=== PATIENT | female | born 2000 | race Two or more races ===

== ENCOUNTER 2025-01-10 10:20 | Outpatient (AMB) | payer MEDICAID, SELFPAY ==
[2025-01-10 10:36] VITALS: BP 115/75; PULSE 74; RESP 17; TEMP 36.9; O2SAT 99; BMI 34.0
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
== END 2025-01-10 11:33 | disposition home or self-care (01) ==
PROVIDERS: PCP Advanced Practice Midwife; Referring Provider Advanced Practice Midwife; Supervising Provider Advanced Practice Midwife; Visit Provider Advanced Practice Midwife
DX: Z34.82 Encounter for supervision of other normal pregnancy, second trimester (principal); Z3A.18 18 weeks gestation of pregnancy; Z87.59 Personal history of other complications of pregnancy, childbirth and the puerperium
CPT/HCPCS: 99214; G0463

== ENCOUNTER 2025-05-03 09:25 | Outpatient (AMB) | payer MEDICAID, SELFPAY ==
[2025-05-03 09:39] VITALS: BP 111/71; PULSE 77; RESP 14; TEMP 36.6; O2SAT 98; BMI 35.9
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
== END 2025-05-03 10:09 | disposition home or self-care (01) ==
LOC: HODSOBC 09:25
PROVIDERS: PCP Advanced Practice Midwife; Referring Provider Advanced Practice Midwife; Supervising Provider Advanced Practice Midwife; Visit Provider Advanced Practice Midwife
DX: O09.93 Supervision of high risk pregnancy, unspecified, third trimester (principal); Z3A.34 34 weeks gestation of pregnancy
CPT/HCPCS: 99214; G0463

== ENCOUNTER 2025-05-17 14:31 | Outpatient (AMB) | payer MEDICAID, SELFPAY ==
[2025-05-17 14:41] VITALS: BP 112/70; PULSE 99; RESP 18; TEMP 36.8; O2SAT 97; BMI 36.1
--- NOTE | 2025-05-17 14:41 | OBCLNT_ITS ---
Vital Signs 05/17/25 14:41 Height 1.65 m Height Method Stated Weight 98.543 kg Weight Measurement Method Standing Scale BMI 36.1 BP 112/70 Blood Pressure Source Automatic Cuff Blood Pressure Location Right Upper Arm Position Sitting Respiration 18 Pulse 99 Pulse Source Monitor Temp 98.3 F Temp Source Temporal Artery Scan Pulse Oximetry (%) 97 Oxygen Delivery Method Room Air Allergies/Home Meds Allergies & Medications Allergies No Known Allergies Allergy (Verified 05/17/25 14:42) Medication Reconciliation aspirin 81 mg tablet,delayed release (Adult Aspirin Regimen) 81 mg PO QDAY #60 tabs 01/10/25 [Rx Confirmed 05/17/25] vits no.126-ferrous fum 28 mg iron-folic acid 800 mcg tablet (Classic ) tab PO 01/10/25 [History Confirmed 05/17/25] Immunizations Immunizations Flu Vaccine in the Last 12 Months: No Flu Vaccine Exclusion Criteria: No Exclusion Criteria Care OB Visit Log OB Flowsheet Initial Weight: Not Recorded Date -?-?-?-?-?-?-?-?-?-?-?-?- EGA Weight BP Alb Glu CTX Pres Fundal ht FHR Mov Dilation Station Effacement Hx Notes Visit Note 01/10/25 -?-?-?-?-?-?-?-?-?-?-?-?- 18w 1d 92.703 kg 115/75 absent unknown 18 156 active This is a 24-year-old 2 para 1 for OBI. Patient first went to [facility] for verification. She is taking prenatals. Patient has sure dates. Last period September 05, 2024 and this will give due date June 13, 2025. History of gestational hypertension her first . She has no complications with the . The baby weighed 6 pounds. Denies bleeding or leaking at this time and no cramps. AFP, NIPT, OB pa [place] today. Schedule anatomy scan with [facility]. Discussed diets and exercise. SAB precautions. And start low-dose baby aspirin 1 daily. Return in 4 weeks OB check 05/03/25 -?-?-?-?-?-?-?-?-?-?-?-?- 34w 2d 97.976 kg 111/71 absent cephalic 34 156 active No OB complaints. Reports movement. Denies leaking, bleeding, contractions GBS next visit. We ordered third trimester labs and A1c today. Discussed kick count and labor precautions 05/17/25 -?-?-?-?-?-?-?-?-?-?-?-?- 36w 2d 98.543 kg 112/70 absent cephalic 36 156 active Reports good movement. Denies leaking, bleeding, contractions GBS today. Discussed labor precautions. Kick count twice a day. Comfort measures for OP position and how to turn her baby and return in a week OB check MYRA Calculator Estimated Delivery Date Method Current WG Current Estimate 06/12/25 LMP (Certain) 36w 2d Other Estimates 06/12/25 Ultrasound #1 36w 2d 06/12/25 Manual 36w 2d final myra: 05/23 08/16 Notes Visit Date: 05/17/25 Last Updated by: Alisa Cline CNM 3rd tri lab wnl Visit Date: 05/03/25 Last Updated by: Alisa Cline CNM O+,abs-,rpr;;nr, rub imm, hbsag-, hiv-,hc-, GC/CT-, NIPT and carrier screen- Visit Date: 01/10/25 Last Updated by: Alisa Cline CNM 24 yo LMP 09/05/24, EDC 06/13/25 Office Procedures OBC Clinic LOC & Office Proc's Nursing/Assessment Patient Status: Established Patient OB Clinic Nursing Assessment: Medication Reconciliation, Update PMH in EMR and Vital Signs OB Clinic Coordination of Care: Complex Care and Chronic Disease 1-5, Education Complex Pt/Fam, Consent,records obtained, informed consent, Lab and Imaging orders, Results/Orders obtained and Staff clarify orders Special Needs: Heart tones Miscellaneous Interventions: Culture Specimen Collection Established Patient Charge Established Patient Point Assignment: 155 Established Patient Point Charge: EP Level 4 (120-155) Assessment & Plan Diagnosis / Problem List (1) Encounter for supervision of high risk in third trimester, antepartum: Status: Acute Plan GBS today. Discussed labor precautions. Kick count twice a day. Continue prenatals. Comfort measures for OP position return in a week OB check Additional Plan Follow Up: 1 Week (obc)
== END 2025-05-17 15:05 | disposition home or self-care (01) ==
LOC: HODSOBC 14:31
PROVIDERS: Supervising Provider Advanced Practice Midwife; Visit Provider Advanced Practice Midwife
DX: O09.93 Supervision of high risk pregnancy, unspecified, third trimester (principal); Z3A.36 36 weeks gestation of pregnancy; Z36.85 Encounter for antenatal screening for Streptococcus B
CPT/HCPCS: 99214; G0463

== ENCOUNTER 2025-06-02 11:55 | Inpatient (IN) | payer MEDICAID, SELFPAY ==
[2025-06-02] VITALS (104 sets, daily range): BP systolic 115–186; BP diastolic 64–108; PULSE 80–120; RESP 18–99; TEMP 36.6–36.8; O2SAT 84–100; BMI 36.6
[2025-06-02 12:52] LABS: ROM Kit Exp Date# 04/11/28; ROM Kit Lot # 58106258; ROM Swab Mixed By: SAUCT; Rupture of Fetal Membranes Negative (Negative); Swb Mxed in Solvent 1 min? Yes
--- NOTE | 2025-06-02 13:21 | XR_ITS ---
Examination: Complete OB ultrasound greater than 14 weeks Date and time of exam: 06/02/2025 at 2:42 p.m. CLINICAL HISTORY: Patient is complaining of contractions, vaginal spotting and fluid leaking which began today Findings: Viable intrauterine single fetus with single amniotic sac The fetus is in cephalic presentation. heart rate is normal at 143 bpm.. There is a three-vessel cervical cord, placenta is located at the fundus and is grade 3. heart 4 chamber is identified, as is the bladder and kidneys and stomach and spine the cervical length could not be obtained, this area was obscured the a very low position the head Visualization of both right and left ovaries was not able to be obtained, due to overlying bowel gas Composite estimated gestational age based on BPD, head circumference, abdominal circumference, femur length is 37 weeks 5 days. Estimated weight is 3304 gm. Estimated date of delivery is June 18, 2025 Survey of intracranial anatomy, spinal anatomy, abdominal anatomy, four-chamber heart performed with no abnormalities identified. Impression: 1. Normal-appearing single intrauterine fetus in cephalic presentation, current gestational age 37 weeks 5 days 2. The placenta is grade 3 and is located at the fundus of the. Uterus 3. No abnormalities are identified on today's study 4 the head circumference/abdominal circumference ratio, and the femur length/BPD the are both within normal limit
[2025-06-02 15:41] LABS: ROM Kit Exp Date# 04/11/28; ROM Kit Lot # 58106258; ROM Swab Mixed By: SANCF1; Rupture of Fetal Membranes Negative (Negative); Swb Mxed in Solvent 1 min? Yes
[2025-06-02] MEDS: RINGERS LACTATED 1000 ML 1,000 ML 100 ML IV ×2 (17:25→20:12)
[2025-06-02] MEDS: Ampicillin Inj 2,000 MG in SODIUM CHLORIDE 0.9% (POP) 100 ML 200 MG IV (17:25)
[2025-06-02 17:43] LABS: Basophils # (Auto) 0.0 Thou/mm3 (0.0-0.2); Basophils % (Auto) 0 % (0-2.5); Eosinophils # (Auto) 0.0 Thou/mm3 (0.0-0.5); Eosinophils % (Auto) 0 % (0-10); Hematocrit 37.2 % (36.0-46.0); Hemoglobin 12.8 g/dL (12.0-16.0); Immature Granulocytes Auto 0.06 Thou/mm3 (0.00-0.00); Lymphocytes # (Auto) 1.2 Thou/mm3 (1.0-4.8); Lymphocytes % (Auto) 15 % (10-50); Mean Corpuscular HGB Conc 34.4 g/dl (31.0-37.0); Mean Corpuscular Hemoglobin 33.3 pg (25.0-35.0); Mean Corpuscular Volume 97 fL (80-100); Monocytes # (Auto) 1.0 Thou/mm3 (0.0-0.8); Monocytes % (Auto) 12 % (0-12); Neutrophils # (Auto) 6.0 Thou/mm3 (1.8-7.7); Neutrophils % (Auto) 72 % (37-80); Nucleated Red Blood Cell # 0.00 Thou/mm3 (0.00-0.00); Nucleated Red Blood Cell % 0 /100 WBC (0); Platelet Count 190 Thou/mm3 (140-440); RDW Standard Deviation 42.2 fL (36.4-46.3); Red Blood Count 3.84 Miln/mm3 (4.00-5.20); White Blood Count 8.3 Thou/mm3 (3.6-11.0)
[2025-06-02 18:34] LABS: Syphilis Nonreactive (Nonreactive)
[2025-06-02 19:31] LABS: Basophils # (Auto) 0.0 Thou/mm3 (0.0-0.2); Basophils % (Auto) 0 % (0-2.5); Eosinophils # (Auto) 0.0 Thou/mm3 (0.0-0.5); Eosinophils % (Auto) 0 % (0-10); Hematocrit 37.2 % (36.0-46.0); Hemoglobin 12.6 g/dL (12.0-16.0); Immature Granulocytes Auto 0.08 Thou/mm3 (0.00-0.00); Lymphocytes # (Auto) 1.6 Thou/mm3 (1.0-4.8); Lymphocytes % (Auto) 16 % (10-50); Mean Corpuscular HGB Conc 33.9 g/dl (31.0-37.0); Mean Corpuscular Hemoglobin 32.9 pg (25.0-35.0); Mean Corpuscular Volume 97 fL (80-100); Monocytes # (Auto) 1.2 Thou/mm3 (0.0-0.8); Monocytes % (Auto) 12 % (0-12); Neutrophils # (Auto) 7.0 Thou/mm3 (1.8-7.7); Neutrophils % (Auto) 71 % (37-80); Nucleated Red Blood Cell # 0.00 Thou/mm3 (0.00-0.00); Nucleated Red Blood Cell % 0 /100 WBC (0); Platelet Count 178 Thou/mm3 (140-440); RDW Standard Deviation 42.2 fL (36.4-46.3); Red Blood Count 3.83 Miln/mm3 (4.00-5.20); White Blood Count 9.9 Thou/mm3 (3.6-11.0)
[2025-06-02 19:55] LABS: Fibrinogen 553 mg/dL (175-375); INR 1.0 (0.9-1.3); Partial Thromboplastin Time 25.6 Seconds (22.0-36.0); Prothrombin Time 10.5 Seconds (9.0-12.2)
[2025-06-02 19:57] LABS: Alanine Aminotransferase 110 U/L (10-49); Albumin, Serum 4.3 gm/dL (3.5-5.0); Albumin/Globulin Ratio 1.2 (1.2-2.2); Alkaline Phosphatase 763 U/L (46-116); Anion Gap 12 (7-16); Aspartate Amino Transferase 72 U/L (0-34); BUN/Creatinine Ratio 9 Ratio (12-20); Bilirubin,Total 1.9 mg/dL (0.3-1.2); Blood Urea Nitrogen 6 mg/dL (9-23); Calcium 9.9 mg/dL (8.3-10.6); Calcium (Corrected) 9.9 mg/dL (8.5-10.1); Carbon Dioxide 20.8 mMol/L (20.0-31.0); Chloride 103 mMol/L (98-107); Creatinine (Component) 0.7 mg/dL (0.6-1.3); Estimated Creatinine Clearance 147.5 mL/min (>60); Globulin 3.5 gm/dL (2.3-3.5); Glucose 66 mg/dL (74-106); LDH (Lactate Dehydrogenase) 374 U/L (120-246); Osmolality,Calculated 267 (275-295); Potassium 4.3 mMol/L (3.4-5.1); Sodium 136 mMol/L (136-145); Total Protein 7.8 gm/dL (5.7-8.2); Uric Acid 5.6 mg/dL (3.1-7.8); eGFR > 60 See Note
[2025-06-02] MEDS: Ampicillin Inj 1,000 MG in SODIUM CHLORIDE 0.9% (Popper) 50 ML 50 MG IV (21:23)
[2025-06-02 21:25] LABS: Collection Type, Urine Clean Catch
[2025-06-02 21:29] LABS: Bilirubin,Urine Negative (Negative); Blood,Urine Negative (Negative); Clarity,Urine Clear (Clear/Hazy); Color,Urine Yellow (Lt Yel-Yel); Glucose, Urine Negative (Negative); Ketones,Urine 3+ (Negative); Leukocyte Esterase,Urine Negative (Negative); Nitrite,Urine Negative (Negative); PH,Urine 6.5 (5.0-7.0); Protein,Urine Trace (Neg - Trace); RBC,Urine 6 /hpf (0-3); Specific Gravity,Urine 1.020 (1.001-1.035); Squamous Epithelial Cell,Urine < 1 /hpf (0-5); Urobilinogen,Urine 2.0 mg/dL (0.0-1.0); WBC,Urine < 1 /hpf (0-5)
[2025-06-02] MEDS: OXYTOCIN in NS 30 units 30 UNIT/500 ML BAG IV (21:45)
[2025-06-02 21:50] LABS: Creatinine,Random Urine 76 mg/dL (30-125); Protein Total, Random Urine 34 mg/dL (1-14)
[2025-06-03] VITALS (49 sets, daily range): BP systolic 105–159; BP diastolic 60–94; PULSE 65–181; RESP 14–16; TEMP 36.7–37; O2SAT 91–100
[2025-06-03] MEDS: RINGERS LACTATED 1000 ML 1,000 ML 100 ML IV (00:36)
[2025-06-03] MEDS: Ampicillin Inj 1,000 MG in SODIUM CHLORIDE 0.9% (Popper) 50 ML 50 MG IV (01:21)
[2025-06-03] MEDS: OXYTOCIN in NS 20 units 20 UNIT/1,000 ML BAG 125 UNIT IV (02:06)
[2025-06-03] MEDS: TRANEXAMIC ACID 1,000 MG IVPB 1,000 MG/100 ML BAG 200 MG IV (02:10)
[2025-06-03] MEDS: OXYTOCIN INJ 10 UNIT/ML VIAL IM (02:12)
--- NOTE | 2025-06-03 02:46 | PD.LDHP ---
Documentation for date of: 06/03/25 OB Labor/Induct. HPI History of Present Illness Chief complaint: labor : 2 Para: 1 Term pregnancies: 1 pregnancies: 0 Living children: 1 History of Abortions: Spontaneous and Elective: 0 History of Vaginal deliveries: 1 History of sections: No History of : No Date of last menstrual period: 09/05/24 MYRA: 06/01/25 Gestational Age (weeks): 38 Gestational Age (days): 5 Gestational age based on last menstrual period: 38 Indication for induction: maternal discomfort History of present illness: 24-year-old 2 para 1 admit to labor and delivery with complaints of contractions since 1600. Patient thought she had rupture membranes but AmniSure was negative x 2. But then patient had made cervical change so she was. On the complete OB BENSON was 5. Last period September 05, 2024. Estimated due date June 18, 2025. Patient was 18 weeks first visit at OB clinic. Patient is O+, antibody screen negative, RPR nonreactive, rubella immune, hepatitis B negative, hep C negative, HIV negative, GC and Chlamydia were negative. Normal 1 hours. Her NIPT and carrier screen were negative and GBS positive patient denies social habits. Denies surgery. Denies chronic illness. Patient reports movement. History of PIH with first . Patient was taking low-dose baby aspirin. History of Present Dating criteria: LMP confirmed by 2nd trimester US Adequate Care: Yes Ultrasounds: normal mid trimester US Obstetrical complications: none Medical complications: none Labs Labs: Positive: Rubella Titre and Group Beta Strep, Negative: RPR, Hepatitis B, HIV, Chlamydia and Gonorrhea and Unknown: Herpes Type 1, Herpes Type 2 and Covid-19 Review of Systems Review of Systems Systems Reviewed: All systems reviewed, normal except as documented Past Medical History Surgical History SURGICAL: Negative Section Meds Home Medications and Allergies Home Medications ?Medication ?Instructions ?Recorded ?Confirmed ?Type vits no.126-ferrous fum tab PO 01/10/25 05/17/25 History 28 mg iron-folic acid 800 mcg tablet (Classic ) Allergies Allergy/AdvReac Type Severity Reaction Status Date / Time No Known Allergies Allergy Verified 06/02/25 18:57 OB Exam Physical Exam Vital signs: Temp Pulse Resp BP Pulse Ox 97.8 F 92 18 115/84 91 L 06/02/25 23:30 06/03/25 02:33 06/02/25 23:30 06/03/25 02:33 06/03/25 02:12 Narrative: Alert and oriented. Normal heart rate and rhythm. Lungs are clear no wheezes. Gravid abdomen. Gynecoid pelvis. Estimated weight 7 pounds. Vaginal exam on admission was 80%, 3, -2 mid position. BESNON 5cm. vtx, FHR category 1. Several blood pressures in mid range. PIH labs were done. CR ratio was less than 2. ALT and AST were high. Detailed Labor and Delivery Exam Dilation (cm): 3 Effacement (%): 80 Cervix position: mid station: -2 Consistency: soft Presentation: Vertex Baseline heart rate: 145 monitor accelerations: 15x15 monitor decelerations: None joint terminal attack controller variability: Moderate (11-25) Contraction frequency (min): 5-7 Contraction duration (sec): 40 Tachysystole: No Contraction intensity: Mild OB Results Labs 06/02/25 19:06 06/02/25 19:06 Labs: Short CBC 06/02/25 06/02/25 Range/Units 17:20 19:06 WBC 8.3 9.9 (3.6-11.0) Thou/mm3 Hgb 12.8 12.6 (12.0-16.0) g/dL Hct 37.2 37.2 (36.0-46.0) % Plt Count 190 178 (140-440) Thou/mm3 BMP 06/02/25 19:06 Sodium 136 Potassium 4.3 Chloride 103 Carbon Dioxide 20.8 BUN 6 L Creatinine 0.7 Glucose 66 L Calcium 9.9 Liver Function 06/02/25 Range/Units 19:06 Total Bilirubin 1.9 H (0.3-1.2) mg/dL AST 72 H (0-34) U/L ALT 110 H (10-49) U/L Alkaline Phosphatase 763 H (46-116) U/L Albumin 4.3 (3.5-5.0) gm/dL Urine 06/02/25 Range/Units 21:15 Urine Color Yellow (Lt Yel-Yel) Urine Clarity Clear (Clear/Hazy) Urine pH 6.5 (5.0-7.0) Ur Specific [place] 1.020 (1.001-1.035) Urine Protein Trace (Neg - Trace) Urine Glucose (UA) Negative (Negative) OB Assessment & Plan Assessment and Plan (1) Normal labor and delivery: Status: Acute Additional Plan Induction method: per pitocin protocol Plan: augmentation, anticipate NVD, GBS prophylaxis tx and consult MD wetzel
[2025-06-03] MEDS: IBUPROFEN TAB 400 MG TABLET 800 MG PO (02:53)
--- NOTE | 2025-06-03 02:59 | PD.LDDELS ---
Data (Daniel) Data Hx Section: No : 2 Term: 1 : 0 Livin Abortions: Spontaneous & Theraputic: 0 Delivery Data (Daniel) Labor Data Initiation of labor: Augmentation Induction/Augmentation Agent: Pitocin ROM date: 06/03/25 ROM time: 01:45 Amniotic membrane rupture type: Spontaneous Amniotic fluid description: Clear Delivery Data EDC: 06/12/25 EDC calculated by:: LMP/early US confirmation Date of arrival to unit: 06/02/25 Time of arrival to unit: 11:55 Onset of labor date: 06/02/25 Onset of labor time: 01:00 Complete dilation date: 06/03/25 Complete dilation time: 01:45 [place] delivery date: 06/03/25 delivery time: 01:52 Gestational age (weeks): 38 Gestational age (days): 5 Placenta delivery date: 06/03/25 Placenta delivery time: 02:05 Stage 1 total time: Labor - Stage 1 Duration 24 hours and 45 minutes Delivered by: jay Delivery nurse: marcia bowden Opening Machine Cleaner at delivery: No Support person(s) at delivery: mother of pt Other staff at delivery: jay rn, eron rn, jose maria rn , jesusita rn clinical resource Method Delivery method: Normal Vaginal Delivery Presentation: Vertex position: OA Anesthesia Type Anesthesia Type: Epidural Delivery Room Medications Delivery room medications: Pitocin 10 u IM, Pitocin 20 u IV, Cytotec 800 NH and other (txa ) Placenta Placenta delivery description: Spontaneous (inspected, intact) Cord blood sent to lab: Yes cord blood collection: Cord Blood Type Episiotomy Episiotomy description: skin tear Perineal repair Sutures used for repair: 3.0 Vicryl (2 stitch) EBL Estimated blood loss (ml): 400 Umbilical Cord cord description: 3 Vessels Additional Procedures Called for delivery when baby's head was . So precept delivery by RN. I delivered the placenta. Genital tract inspected for lacerations and very small repair was done. Patient stable minimal bleeding at this Data (Daniel) [place] Data Brown[place]'s gender: Female Identification band number: [id number] weight (gms): 2910 g Weight (pounds): 6 lbs and 6.6 ozs [place] length: 48.26 cm 1 minute: 9 5 minutes: 9
[2025-06-03 08:48] LABS: Alanine Aminotransferase 105 U/L (10-49); Albumin, Serum 3.6 gm/dL (3.5-5.0); Albumin/Globulin Ratio 1.2 (1.2-2.2); Alkaline Phosphatase 657 U/L (46-116); Anion Gap 11 (7-16); Aspartate Amino Transferase 64 U/L (0-34); BUN/Creatinine Ratio 10 Ratio (12-20); Bilirubin,Total 2.0 mg/dL (0.3-1.2); Blood Urea Nitrogen 7 mg/dL (9-23); Calcium 9.3 mg/dL (8.3-10.6); Calcium (Corrected) 9.6 mg/dL (8.5-10.1); Carbon Dioxide 22.3 mMol/L (20.0-31.0); Chloride 105 mMol/L (98-107); Creatinine (Component) 0.7 mg/dL (0.6-1.3); Estimated Creatinine Clearance 147.5 mL/min (>60); Globulin 3.0 gm/dL (2.3-3.5); Glucose 70 mg/dL (74-106); Osmolality,Calculated 271 (275-295); Potassium 4.1 mMol/L (3.4-5.1); Sodium 138 mMol/L (136-145); Total Protein 6.6 gm/dL (5.7-8.2); eGFR > 60 See Note
[2025-06-03] MEDS: DOCUSATE SOD 100 MG CAPSULE PO ×2 (08:50→20:05)
[2025-06-03 11:29] LABS: Basophils # (Auto) 0.0 Thou/mm3 (0.0-0.2); Basophils % (Auto) 0 % (0-2.5); Eosinophils # (Auto) 0.0 Thou/mm3 (0.0-0.5); Eosinophils % (Auto) 0 % (0-10); Hematocrit 34.0 % (36.0-46.0); Hemoglobin 11.8 g/dL (12.0-16.0); Immature Granulocytes Auto 0.06 Thou/mm3 (0.00-0.00); Lymphocytes # (Auto) 1.7 Thou/mm3 (1.0-4.8); Lymphocytes % (Auto) 13 % (10-50); Mean Corpuscular HGB Conc 34.7 g/dl (31.0-37.0); Mean Corpuscular Hemoglobin 33.2 pg (25.0-35.0); Mean Corpuscular Volume 96 fL (80-100); Monocytes # (Auto) 2.3 Thou/mm3 (0.0-0.8); Monocytes % (Auto) 17 % (0-12); Neutrophils # (Auto) 9.4 Thou/mm3 (1.8-7.7); Neutrophils % (Auto) 70 % (37-80); Nucleated Red Blood Cell # 0.00 Thou/mm3 (0.00-0.00); Nucleated Red Blood Cell % 0 /100 WBC (0); Platelet Count 171 Thou/mm3 (140-440); RDW Standard Deviation 41.4 fL (36.4-46.3); Red Blood Count 3.55 Miln/mm3 (4.00-5.20); White Blood Count 13.5 Thou/mm3 (3.6-11.0)
[2025-06-03 19:55] LABS: Alanine Aminotransferase 96 U/L (10-49); Albumin, Serum 3.7 gm/dL (3.5-5.0); Albumin/Globulin Ratio 1.2 (1.2-2.2); Alkaline Phosphatase 592 U/L (46-116); Anion Gap 8 (7-16); Aspartate Amino Transferase 48 U/L (0-34); BUN/Creatinine Ratio 9 Ratio (12-20); Bilirubin,Total 2.1 mg/dL (0.3-1.2); Blood Urea Nitrogen 6 mg/dL (9-23); Calcium 9.5 mg/dL (8.3-10.6); Calcium (Corrected) 9.7 mg/dL (8.5-10.1); Carbon Dioxide 26.2 mMol/L (20.0-31.0); Chloride 104 mMol/L (98-107); Creatinine (Component) 0.7 mg/dL (0.6-1.3); Estimated Creatinine Clearance 147.5 mL/min (>60); Globulin 3.0 gm/dL (2.3-3.5); Glucose 74 mg/dL (74-106); Osmolality,Calculated 272 (275-295); Potassium 3.9 mMol/L (3.4-5.1); Sodium 138 mMol/L (136-145); Total Protein 6.7 gm/dL (5.7-8.2); eGFR > 60 See Note
[2025-06-04 03:35] VITALS: BP 115/76; PULSE 74; RESP 16; TEMP 36.8; O2SAT 99
--- NOTE | 2025-06-04 04:03 | PD.LDPPPRG ---
Subjective Subjective Interval history: No complaints of pain. No dizziness. Bonding and breast-feeding. No headache no blurred vision no epigastric pain Exam Vital Signs Temp Pulse Resp BP Pulse Ox O2 Del Method 98.1 F 65 16 105/64 98 Room Air 06/03/25 23:20 06/03/25 23:20 06/03/25 23:20 06/03/25 23:20 06/03/25 23:20 06/03/25 23:20 Narrative Exam 64 was normal heart rate and rhythm. Her lungs are clear. Liver enzymes have decreased to: AST:42, ALT:93. 2+ DTRs. No edema. Negative Homans' sign. Breasts are soft. Uterus well involuted in 3 below umbilicus. Small lochia. Perineum is intact no swelling Objective Labs 06/03/25 11:08 06/03/25 19:04 Labs: Laboratory Results - last 24 hr 06/03/25 06/03/25 06/03/25 07:37 11:08 19:04 WBC 13.5 H RBC 3.55 L Hgb 11.8 L Hct 34.0 L MCV 96 MCH 33.2 MCHC 34.7 RDW Std Deviation 41.4 Plt Count 171 Neut % (Auto) 70 Lymph % (Auto) 13 [place] % (Auto) 17 H Eos % (Auto) 0 Baso % (Auto) 0 Neut # (Auto) 9.4 H Lymph # (Auto) 1.7 [place] # (Auto) 2.3 H Eos # (Auto) 0.0 Baso # (Auto) 0.0 Immature Gran # (Auto) 0.06 H Absolute Nucleated RBC 0.00 Immature Gran % 0 Nucleated RBC % 0 Sodium 138 138 Potassium 4.1 3.9 Chloride 105 104 Carbon Dioxide 22.3 26.2 Anion Gap 11 8 BUN 7 L 6 L Creatinine 0.7 0.7 Estim Creat Clear Calc 147.5 147.5 eGFR > 60 > 60 BUN/Creatinine Ratio 10 L 9 L Glucose 70 L 74 Calculated Osmolality 271 L 272 L Calcium 9.3 9.5 Corrected Calcium 9.6 9.7 Total Bilirubin 2.0 H 2.1 H AST 64 H 48 H ALT 105 H 96 H Alkaline Phosphatase 657 H D 592 H D Total Protein 6.6 6.7 Albumin 3.6 D 3.7 Globulin 3.0 3.0 Albumin/Globulin Ratio 1.2 1.2 Assessment & Plan Problem List (1) Normal labor and delivery: Status: Acute Assessment Comment Assessment comment: 24 hr pp Plan Comment Plan Comment: Discharge patient today. All continue to board with baby while under bili lights. Repeat CBC today. Patient will continue vitamins. Iron if needed. Tylenol or ibuprofen for pain. Discussed if discomfort measures and sitz bath as needed. Discussed ER precautions and PIH precautions. Discussed signs and symptoms of infection. Return in 3 weeks Time Spent With Patient Time: Total time spent is greater than 50% in coordination of care (as documented) at patient's floor/unit and/or counseling patient:
--- NOTE | 2025-06-04 04:07 | ESDS_ITS ---
DS: Providers Provider Date of admission: 06/02/25 16:09 Primary care physician: Physician No Primary/Family Admitting Provider: Alisa Cline CNM Attending Provider on Admission: Alisa Cline CNM Consults: 06/03/25 03:04 Referral Routine Comment: Attending Provider on DC: Alisa Cline CNM Discharging Provider: Alisa Cline CNM DS: Diagnosis Problem List Completed Was Problem List Reviewed/Reconciled?: Yes Summary/Hosp Course Brief History: 24-year-old 2 para 1 admit to labor and delivery with complaints of contractions since 1600. Patient thought she had rupture membranes but AmniSure was negative x 2. But then patient had made cervical change so she was. On the complete OB BENSON was 5. Last period September 05, 2024. Estimated due date June 18, 2025. Patient was 18 weeks first visit at OB clinic. Patient is O+, antibody screen negative, RPR nonreactive, rubella immune, hepatitis B negative, hep C negative, HIV negative, GC and Chlamydia were negative. Normal 1 hours. Her NIPT and carrier screen were negative and GBS positive patient denies social habits. Denies surgery. Denies chronic illness. Patient reports movement. History of PIH with first . Patient was taking low- dose baby aspirin. Peripartum Data Delivery Method: Normal Vaginal Delivery Episiotomy Description: None Laceration Description: yes (2 stitch) complications: none Time Spent with Patient Time attestation: Total time spent providing and/or coordinating discharge services: Exam Vital Signs Temp Pulse Resp BP Pulse Ox O2 Del Method 98.1 F 65 16 105/64 98 Room Air 06/03/25 23:20 06/03/25 23:20 06/03/25 23:20 06/03/25 23:20 06/03/25 23:20 06/03/25 23:20 Discharge Plan Plan Patient Disposition: HOME (Self Care) Patient condition on transfer: Stable Prescriptions/Referrals Prescriptions/Med Rec: No Action Classic 28 mg iron- 800 mcg tablet PO aspirin [Adult Aspirin Regimen] 81 mg tablet,delayed release (DR/EC) 81 mg PO QDAY Qty: 60 1RF Referrals: No Primary/Family,Physician [Primary Care Provider] Patient/Caregiver Discharge Instructions Meds to Beds: No Discharge Activity: resume usual activities Education Materials: Kick Counts, Antepartum Discharge Print Language: Martiniquais Activity Restrictions/Additional Instructions: Discharge home with baby. Okay to room while baby is under bili lights. CBC now. Take Tylenol or ibuprofen for pain. Continue vitamins and iron. Discussed ER precautions with parameters and signs symptoms of preeclampsia. Discussed comfort measures for laceration. And discussed signs and symptoms of infection. ER precautions reviewed and danger signs symptoms return. Return in 3 weeks visit Stand Alone Forms: Daniella Award Info., Patient Portal Info Letter, Work/Release Restrictions Discharge Order Discharge Orders: Discharge (Routine); Ordered 06/04/25 Ordered By: Alisa Cline Planned Discharge Date 06/04/25
[2025-06-04 07:45] VITALS: BP 119/75; PULSE 63; RESP 17; TEMP 36.7; O2SAT 97
[2025-06-04] MEDS: DOCUSATE SOD 100 MG CAPSULE PO (09:58)
== END 2025-06-04 11:54 | disposition home or self-care (01) | DRG 560 ==
LOC: S4SX 06-03 02:16 → S4NX 06-03 04:38
PROVIDERS: Admitting Provider Advanced Practice Midwife; Visit Provider Advanced Practice Midwife
DX: O99.824 Streptococcus B carrier state complicating childbirth (principal); Z37.0 Single live birth; Z3A.38 38 weeks gestation of pregnancy
CPT/HCPCS: 36415; 59025; 76805; 80053; 81001; 82570; 83615; 84112; 84156; 84550; 85025; 85384; 85610; 85730; 86780; 86850; 86900; 86901; J0290; J2590; J2795; J3010; J3490; J7050; J7120; S0191; A9270